=== PATIENT | male | born 1980 | race Caucasian/White ===

== ENCOUNTER 2017-01-30 | Emergency (ER) | payer SELFPAY ==
[~2017-01-30] VITALS: Ht 170.2 cm; Wt 85.0 kg
[2017-01-30 19:34] VITALS: BP 141/90
== END 2017-01-30 21:41 | disposition left against medical advice (07) ==
LOC: EME 19:24
DX: M54.2 Cervicalgia (principal); Z53.21 Procedure and treatment not carried out due to patient leaving prior to being seen by health care provider

== ENCOUNTER 2017-02-23 03:13 | Emergency (ER) | payer OTHER ==
[~2017-02-23] VITALS: Ht 170.2 cm; Wt 84.4 kg
[2017-02-23] MEDS ORDERED: ULTRAM50 MG PO (05:35)
[2017-02-23] MEDS ORDERED: FLEXERIL10 MG PO (05:38)
[2017-02-23 06:03] VITALS: BP 148/89
== END 2017-02-23 06:06 | disposition home or self-care (01) ==
LOC: EME 03:13
DX: M54.2 Cervicalgia (principal); G89.29 Other chronic pain; F17.200 Nicotine dependence, unspecified, uncomplicated
CPT/HCPCS: 99281; 99283